=== PATIENT | male | born 1935 | race Caucasian/White ===

== ENCOUNTER 2017-12-13 20:24 | Inpatient (IN) | payer MEDICARE, MEDICAID ==
[2017-12-13 21:06] LABS: #Eosinphils 0.3 thou/uL (0.0-0.7); #Lymphocytes 1.7 thou/uL (1.20-3.40); #Monocytes 0.7 thou/uL (0.11-0.59); #Neutrophils 5.8 thou/uL (1.40-6.50); %Basophils 0.3 % (0.0-1.0); %Lymphocytes 20.6 % (21.0-51.0); %Monocytes 7.7 % (0.0-10.0); %Neutrophils 68.4 % (42.0-75.0); Hemoglobin 11.6 g/dL (14.0-18.0); Mean Corpuscular HGB CONC 35.2 g/dL (32.0-36.0); Mean Corpuscular Volume 91.2 fL (78.0-98.0); Mean Platelet Volume 6.5 fL (7.4-10.4); Platelet Count 243 thou/uL (130-400); RBC Distribution Width 11.6 % (11.5-14.5); Red Blood Cell (RBC) Count 3.62 mill/uL (4.70-6.10); White Blood Cell (WBC) Count 8.5 thou/uL (4.8-10.8)
--- NOTE | 2017-12-13 21:14 | RAD ---
SINGLE VIEW PELVIS: HISTORY: Fall with pelvic pain. FINDINGS: A single view of the pelvis shows no evidence of acute fracture or dislocation. No degenerative sahu ges are seen in either hip. Degenerative changes are seen in the lumbar spine. IMPRESSION: No evidence of acute osseous abnormality. POS: [facility]
[2017-12-13 21:36] LABS: ALT (SGPT) 29 U/L (8-55); AST (SGOT) 23 U/L (5-34); Albumin 3.8 g/dL (3.4-4.8); Alkaline Phosphatase 90 U/L (40-150); Anion Gap 14 mmol/L (10-20); BUN (Urea Nitrogen) 35 mg/dL (8.4-25.7); Bilirubin, Total 0.5 mg/dL (0.2-1.2); Calc. Creatinine Clearance 0 mL/min (70-130); Calcium 9.1 mg/dL (7.8-10.44); Carbon Dioxide 23 mmol/L (23-31); Chloride 106 mmol/L (98-107); Estimated GFR-MDRD 53; Glucose 162 mg/dL (83-110); Protein, Total 5.8 g/dL (5.8-8.1); Sodium 138 mmol/L (136-145)
[2017-12-13 21:41] LABS: Troponin I Less than 0.010 ng/mL (< 0.028)
--- NOTE | 2017-12-13 22:09 | CT ---
NONCONTRAST CT HEAD: 12/13/2017 HISTORY: Injury. Patient found on ground after a fall one hour ago. The patient was acting lethargic. The p atient does not remember the fall. The patient is currently on blood thinners. COMPARISON: None available. FINDINGS: There is decreased attenuation in the periventricular white matter, which is nonspecific but likely r eflective of moderate chronic small vessel ischemic changes. A tiny focus of decreased attenuation i s seen in the right lentiform nucleus, which is nonspecific, but is likely attributable to a remote l acunar infarction. A small, linear, low density area is seen within the right cerebellar hemisphere, related to a remote infarction. There is no evidence of an acute cortical infarction, hemorrhage, m ass effect, or midline shift. There is diffuse cerebral volume loss. The ventricular system is normal in size, shape, and position for the degree of sulcal atrophy. There is no evidence of a calvarial fracture. A tiny mucus retention cyst is present in the right maxillary antra, with minimal mucosal thickening in the left maxillary antrum. The mastoid air cells are clear. Vascular calcifications are seen in the carotid siphons and in the distal vertebral arteries. IMPRESSION: No acute intracranial abnormality is demonstrated. POS: [facility]
[2017-12-14 01:26] LABS: Bilirubin Negative (Negative); Blood, Urine Small (Negative); Clarity CLOUDY (Clear); Glucose, Urine (Dipstick) Negative (Negative); Leukocyte Large (Negative); Nitrite Negative (Negative); Protein, Urine (Dipstick) Negative (Neg-Trace); Specific Gravity, Urine 1.013 (1.002-1.036); Urobilinogen 0.2 mg/dL (0.2-1.0); pH, Urine 6.5 (5.0-9.0)
[2017-12-14 01:29] LABS: Bacteria/HPF None Seen HPF (None Seen); Hyaline Casts/LPF 0-3 HYALINE CAST LPF (0-3 Hyaline); Pathc Cast-AUWi Flag 0.14 (0-2.49); Squamous Epithelial None Seen HPF (0-3)
[2017-12-14] MEDS ORDERED: MEROPENEM 1 GM/50 ML 1 GM in Premix Bag 1 BAG IVPB SCH (02:45)
[2017-12-14 03:31] VITALS: BMI 23.1
[2017-12-14] MEDS ORDERED: Ondansetron ODT 4 MG TAB SL PRN (04:48)
[2017-12-14] MEDS ORDERED: Ondansetron HCl/PF 4 MG/2 ML Vial IVP PRN ×2 (04:48→08:31)
[2017-12-14] MEDS ORDERED: Acetaminophen 325 MG TAB PO PRN (04:48)
[2017-12-14] MEDS ORDERED: Bisacodyl 5 MG TAB PO PRN (08:31)
[2017-12-14] MEDS ORDERED: Acetaminophen 500 MG TAB PO PRN (08:31)
[2017-12-14] MEDS ORDERED: hydrALAZINE 20 MG/ML VIAL SLOW IVP PRN (08:31)
[2017-12-14] MEDS ORDERED: cloNIDine 0.1 MG TAB PO PRN (08:31)
[2017-12-14] MEDS ORDERED: Ondansetron ODT 4 MG TAB PO PRN (08:31)
[2017-12-14] MEDS ORDERED: Bisacodyl 10 MG SUPP PR SCH (09:00)
[2017-12-14] MEDS ORDERED: Non-Formulary Item 1 EACH (Omega-3 Fatty Acids/Fish Oil [Fish Oil 1,000 Mg Capsule] 1 CAP PO SCH (09:00)
[2017-12-14] MEDS ORDERED: Non-Formulary Item 1 EACH (Multivitamin [Daily Multiple Vitamin] 1 EACH) PO SCH (09:00)
[2017-12-14] MEDS ORDERED: Non-Formulary Item 1 EACH (Lactulose 10 Gm/15ml Oral Sol 20 GM) PO SCH (09:00)
[2017-12-14] MEDS ORDERED: LIDOCAINE HCL 76.5 GM TP SCH (09:00)
[2017-12-14] MEDS ORDERED: [UNRECOGNIZED DRUG - REMARK] EA NARE SCH (09:00)
[2017-12-14] MEDS ORDERED: Non-Formulary Item 1 EACH (Cholecalciferol (Vitamin D3) [D3-2000] 2,000 UNIT) PO SCH (09:00)
--- NOTE | 2017-12-14 09:59 | RAD ---
RIGHT HIP TWO VIEWS: History: Hip pain after a fall. Comparison: None. FINDINGS: Exam is limited due to leftward patient rotation. The right femoral neck is intact as well as the jeremias tabulum. Anterior and posterior acetabular turk are intact as well as the obturator foramen and obtu rator rings. Sacral struts are intact. SI joints intact. IMPRESSION: No displaced right sided hip fracture. POS: [facility]
[2017-12-14] MEDS: Sodium Chloride 0.9% 1,000 ML IV SCH (10:16)
[2017-12-14] MEDS: Bisacodyl 10 MG SUPP PR SCH (10:18)
[2017-12-14] MEDS: Atorvastatin Calcium 40 MG TAB PO SCH (10:18)
[2017-12-14] MEDS: cefTRIAXone\\ROCEPHIN 2 GM in Sodium Chloride 0.9% 100 ML IVPB SCH (10:18)
[2017-12-14] MEDS: Famotidine 20 MG TAB PO SCH ×2 (10:19→20:49)
[2017-12-14] MEDS: Clopidogrel Bisulfate 75 MG TAB PO SCH (10:19)
[2017-12-14] MEDS: Fish Oil 1,000 MG CAP PO SCH (10:20)
[2017-12-14] MEDS: Lisinopril 10 MG TAB PO SCH (10:21)
[2017-12-14] MEDS: Multivit, Therapeutic 1 TAB PO SCH (10:21)
[2017-12-14] MEDS: Tamsulosin HCl 0.4 MG CAP PO SCH (10:22)
--- NOTE | 2017-12-14 10:26 | HP ---
PRIMARY CARE PHYSICIAN: Dr. Brayden Vickers CHIEF COMPLAINT: Right hip pain. HISTORY OF PRESENT ILLNESS: This is an 81-year-old male who presents to [facility] Emergency Department transferring from [facility] where the patient has been a current resident over the last 3 months. The patient states pain in his right hip which is bothersom e after apparently falling or being [facility] at the [facility] according to the patient in the last several days. The patient states movement of the right hip is excruciatingly painful, bu t denied any swelling, fever, numbness or swelling to his lower ankles or feet. History is somewhat difficult to obtain as the patient has mild confusion and dementia. Per emergency room records the p atient was also evaluated for questionable syncopal episode; however, the history is sketchy at best when reviewing with the patient. The patient apparently was found on the floor at the [facility] from an unwitnessed fall from the bed. The patient states he is not normally ambula tory and needs assistance to transfer or sit in a chair or wheelchair. The patient initially was com plaining of bilateral hip pain in the emergency room, undergoing pelvic radiograph showing no evidenc e of acute fracture. The patient again states he has limited mobility and needs maximal assistance w ith transfers, sitting upright and eating. Due to patient's deconditioning and clinical decline he w as placed in the [facility] in the last 3 months. In the emergency room, the pat ient also underwent general evaluation including metabolic screening with urinalysis concerning for i nfectious process. The patient also underwent CT imaging of the brain showing no acute process. The patient did receive IV meropenem and 1 liter of normal saline. PAST MEDICAL HISTORY: 1. Coronary artery disease. 2. Nonambulatory status. 3. Question of falls. 4. History of cerebrovascular accident. 5. Benign prosthetic hyperplasia. 6. Hypertension. 7. Question of paraplegia. 8. 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 9. Dyslipidemia. 10. Right inguinal hernia. PAST SURGICAL HISTORY: 1. Status post coronary artery bypass grafting. 2. Status post inguinal hernia repair. 3. Status post bilateral cataract removal. 4. Status post left carotid endarterectomy. 5. Status post right rotator cuff repair. CURRENT MEDICATIONS: 1. Tylenol 500 mg p.o. b.i.d. 2. Enteric coated aspirin 81 mg p.o. daily. 3. Lipitor 40 mg p.o. daily. 4. Dulcolax 10 mg p.o. daily. 5. Dulcolax suppository 10 mg per rectum daily p.r.n. 6. Vitamin D3 2000 units p.o. daily. 7. Plavix 75 mg p.o. daily. 8. Flonase 2 sprays in each naris daily. 9. Lactulose 20 grams p.o. t.i.d. p.r.n. constipation. 10. Aspercreme topically t.i.d. p.r.n. 11. Lisinopril 10 mg 1 tab p.o. daily. 12. Melatonin 5 mg p.o. at bedtime. 13. Metoprolol succinate 25 mg p.o. b.i.d. 14. Multivitamin 1 tab p.o. daily. 15. [place] 3 fatty acids 1 capsule p.o. daily. 16. Flomax 0.4 mg p.o. daily. ALLERGIES: PENICILLIN. FAMILY HISTORY: No inheritable diseases per patient report. SOCIAL HISTORY: The patient resides at [facility]. No current alcohol, tobacco or illicit drug use. Nonambulatory status. Mobilizes with a wheelchair. REVIEW OF SYSTEMS: The following complete review of systems was negative, unless otherwise mentioned in the HPI or below: Constitutional: Weight loss or gain, ability to conduct usual activities. Skin: Rash, itching. Eyes: Double vision, pain. ENT/Mouth: Nose bleeding, neck stiffness, pain, tenderness. Cardiovascular: Palpitations, dyspnea on exertion, orthopnea. Respiratory: Shortness of breath, wheezing, cough, hemoptysis, fever or night sweats. Gastrointestinal: Poor appetite, abdominal pain, heartburn, nausea, vomiting, constipation, or diarrhea. Genitourinary: Urgency, frequency, dysuria, nocturia. Musculoskeletal: Pain, swelling. Neurologic/Psychiatric: Anxiety, depression. Allergy/Immunologic: Skin rash, bleeding tendency. PHYSICAL EXAMINATION: VITAL SIGNS CURRENTLY: Blood pressure 155/67, pulse 62, respiratory rate 18, temperature 99.1 degree s Fahrenheit, O2 saturation 94% on room air. GENERAL APPEARANCE: This is an 81-year-old male, alert and oriented x3, pleasant, responsi ve, in no acute distress. HEENT: Pupils are equal, round, and reactive to light and accommodation. Extraocular muscles are in tact. No scleral icterus, no conjunctival injection. Nares patent. OP is clear. Oral mucosa is dr y appearing. NECK: Supple, no cervical adenopathy, no thyromegaly, no carotid bruits, no JVD appreciated. Cervic al spine with full active and passive range of motion. No meningeal signs appreciated. CHEST: Lungs are clear to auscultation bilaterally. CARDIOVASCULAR: S1, S2, without noted murmur, rub or gallop. ABDOMEN: Rounded, soft, nontender, nondistended. Bowel sounds are positive in all 4 quadrants. The re is no hepatosplenomegaly, no abdominal bruits, no rebound or guarding appreciated. EXTREMITIES: Warm and dry with fair turgor. No clubbing, cyanosis or asymmetric edema appreciated. Pulses are palpable distally at the dorsalis pedis, posterior tibial, and popliteal arteries bilater ally. Capillary refill less than 2 seconds. Positive tenderness to palpation with abduction as well as flexion, extension of the right hip. No palpable mass. No greater trochanteric tenderness to pa lpation or discoloration. No femur deformity palpated. NEUROLOGIC: Cranial nerves II-XII are grossly intact. Not observed ambulatory during this PERTINENT LABORATORY AND X-RAY FINDINGS: BUN 35, creatinine 1.30, estimated GFR 53, glucose 162, mark cium 9.1. LFTs within normal limits. Troponin I negative x1. Albumin 3.8. CBC showed a white bloo d cell count 8.5, hemoglobin 12, hematocrit 33, platelet count 243 with 68% neutrophils. Urinalysis showed small blood, large leukocyte esterase, 7-10 RBCs per high powered field and greater than 50 to too numerous to count WBCs per high powered field. CT of the brain without contrast dated 12/13/2017 showed no acute intracranial process. Pelvic x-ray dated 12/13/2017 showed no acute process. EKG dated 12/13/2017 by my interpretation shows sinus mec hanism with heart rates in the 60s. Attenuated R waves noted in the precordial leads. Left axis dev iation. No acute ST-T wave changes appreciated. ASSESSMENT AND PLAN: 1. Urinary tract infection. We will continue Rocephin 2 grams IV q.24 hours. Urine culture pending . We will continue intravenous normal saline 75 mL per hour and encourage increased free water intak e orally. 2. Right hip pain, etiology unclear. We will obtain dedicated views of the right hip and rule out f racture or dislocation. Initial review of pelvic radiograph shows no acute abnormality. Consider CT imaging of the hip joint, if pain persists. Suspect underlying osteoarthritis as potential etiology . Pain control as needed. 3. Status post fall. Apparent unwitnessed fall. We will obtain PT evaluation for functional assess ment. General fall risk precautions. 4. Chronic kidney disease stage 3. Continue intravenous normal saline at 75 mL per hour. Avoid nep hrotoxic agents and contrast media. Repeat creatinine in the a.m. 5. Normocytic anemia. Appears chronic in nature. No current evidence to suggest acute blood loss. Repeat CBC in the a.m. and monitor hemoglobin trend. 6. Hypertension. Resume home antihypertensive regimen to include lisinopril and metoprolol. 7. Prophylaxis. Sequential compression devices while in bed. General fall risk precautions. Pepci d 20 mg p.o. b.i.d. 8. Code status is full. Surrogate medical decision maker is the patient's son.
[2017-12-14] MEDS: Fluticasone Propionate Nasal Spray 16 gm Bottle NASAL SCH (12:03)
[2017-12-14] MEDS: Methyl Salicylate/Menthol 85 GM TUBE TOP SCH ×2 (15:40→20:49)
[2017-12-14] MEDS: Melatonin 3 MG TAB PO SCH (20:55)
[2017-12-14] MEDS ORDERED: Non-Formulary Item 1 EACH (Melatonin [Melatonin] 5 MG) PO SCH (21:00)
[2017-12-15] MEDS ORDERED: diphenhydrAMINE 50 MG/ML VIAL IVP SCH (03:30)
[2017-12-15 08:45] LABS: Anion Gap 11 mmol/L (10-20); BUN (Urea Nitrogen) 20 mg/dL (8.4-25.7); Calc. Creatinine Clearance 59 mL/min (70-130); Calcium 9.4 mg/dL (7.8-10.44); Carbon Dioxide 24 mmol/L (23-31); Chloride 108 mmol/L (98-107); Estimated GFR-MDRD 70; Glucose 115 mg/dL (83-110); Potassium 4.2 mmol/L (3.5-5.1); Sodium 139 mmol/L (136-145)
[2017-12-15] MEDS: Bisacodyl 10 MG SUPP PR SCH (09:28)
[2017-12-15 09:29] LABS: Hemoglobin 12.4 g/dL (14.0-18.0); Mean Corpuscular HGB CONC 34.2 g/dL (32.0-36.0); Mean Corpuscular Hemoglobin 31.5 pg (27.0-31.0); Mean Corpuscular Volume 92.2 fL (78.0-98.0); Platelet Count 233 thou/uL (130-400); RBC Distribution Width 11.4 % (11.5-14.5); Red Blood Cell (RBC) Count 3.92 mill/uL (4.70-6.10); White Blood Cell (WBC) Count 9.2 thou/uL (4.8-10.8)
[2017-12-15] MEDS: cefTRIAXone\\ROCEPHIN 2 GM in Sodium Chloride 0.9% 100 ML IVPB SCH (09:29)
[2017-12-15] MEDS: Atorvastatin Calcium 40 MG TAB PO SCH (09:29)
[2017-12-15] MEDS: Clopidogrel Bisulfate 75 MG TAB PO SCH (09:30)
[2017-12-15] MEDS: Fish Oil 1,000 MG CAP PO SCH (09:30)
[2017-12-15] MEDS: Famotidine 20 MG TAB PO SCH ×2 (09:30→21:32)
[2017-12-15] MEDS: Fluticasone Propionate Nasal Spray 16 gm Bottle NASAL SCH (09:31)
[2017-12-15] MEDS: Lisinopril 10 MG TAB PO SCH (09:32)
[2017-12-15] MEDS: Multivit, Therapeutic 1 TAB PO SCH (09:33)
[2017-12-15] MEDS: Methyl Salicylate/Menthol 85 GM TUBE TOP SCH ×3 (09:33→21:31)
[2017-12-15] MEDS: Tamsulosin HCl 0.4 MG CAP PO SCH (09:33)
[2017-12-15] MEDS: Sodium Chloride 0.9% 1,000 ML IV SCH ×2 (09:34)
[2017-12-15 09:45] LABS: Band 1 % (5-11); Eosinophils 1 % (0-10); Lymphocytes 18 % (21-51); MDiff Complete? YES; Monocytes 5 % (0-10); Neutrophil 75 % (42-75); RBC Morphology Normal
--- NOTE | 2017-12-15 10:31 | PQF ---
CLINICAL DOCUMENTATION IMPROVEMENT CLARIFICATION FORM: ICD-10 Updated PLEASE DO AN ADDENDUM TO THE PROGRESS NOTE WITH ANY DOCUMENTATION UPDATES OR ADDITIONS AND CARRY THROUGH TO DC SUMMARY. THANK YOU. DATE: 12/15/17 ATTN: DR. ROTH Please exercise your independent, professional judgment in responding to the clarification form. Clinical indicators are provided on the bottom of this form for your review Please check appropriate box(s): [ ] Encephalopathy: Type: [ ] Acute [ ] Subacute [ ] Chronic Etiology: [ ] Hypertensive [ ] Metabolic [ ] Toxic [ ] Hepatic with Coma [ ] Hepatic w/o Coma [ ] Hypoxic [ ] Septic [ ] Drug induced: [ ] Unspecified [ ] in the setting of underlying dementia [ ] Other (please specify) [ ] Transient Alteration of Awareness [ ] Other diagnosis [ x ] Unable to determine In addition, please specify: Present on Admission (POA): [ ] Yes [ ] No [ x] Unable to determine For continuity of documentation, please document condition throughout progress notes and discharge summary. Thank You. CLINICAL INDICATORS - SIGNS / SYMPTOMS / LABS NURSES NOTE 12/15: "AT THIS TIME, PATIENT IS SOMEWHAT AGGRESSIVE AND IS REFUSING TO HAVE SOILED BRIEF CHANGED AND IS ALSO REFUSING TO TURN." "PATIENT HAS CONTINUED TO TRY TO GET OUT OF BED. PT BECAME INCREASINGLY AGGRAVATED WITH NURSING STAFF. UNABLE TO REORIENT PATIENT AT THIS TIME. PT STARTING TO THROW PUNCHES, KICKING, SCRATCHING, AND SPITTING." "PT ALSO REFUSED VITALS AT THIS TIME. PT REFUSED LABS TO BE DRAWN AT THIS TIME. " RISKS: ADVANCED AGE DEMENTIA ADMISSION FOR UTI TREATMENT: WRIST RESTRAINTS IV ANTIBIOTICS [employer] Win[employer] Viewer (This form is maintained as a part of the permanent medical record) 2014 [employer]. All Rights Reserved [email or web address] Office: [phone] [facility] STATE HOSPITALAdeola
--- NOTE | 2017-12-15 14:08 | PDOC.PN ---
- Subjective Encounter Start Date: 12/15/17 Encounter Start Time: 14:05 Subjective: f/u for UTI, dehydration and fall. Feels better overall. Receiving Rocephin -: and IVF's. No new complaints. - Objective Resuscitation Status: Resuscitation Status FULL:Full Resuscitation MAR Reviewed: Yes Vital Signs & Weight: Vital Signs (12 hours) Temp Pulse Resp BP BP Pulse Ox 12/15/17 13:09 97.8 F 72 14 156/70 H 95 12/15/17 08:00 97.8 F 64 14 151/68 H 96 Weight Weight 161 lb 8 oz I&O: 12/14/17 12/15/17 12/16/17 06:59 06:59 06:59 Intake Total 2236 Balance 2236 Result Diagrams: 12/15/17 08:01 12/15/17 08:01 Additional Labs: Laboratory Tests 12/13/17 12/13/17 20:52 20:52 Hgb 11.6 L Potassium 5.0 Creatinine 1.30 Radiology Reviewed by me: Yes (R hip x-ray - no acute process) EKG Reviewed by me: Yes (Tele - SR) Phys Exam - Physical Examination Constitutional: NAD HEENT: PERRLA, sclera anicteric, oral pharynx no lesions Neck: no nodes, no JVD, supple, full ROM Respiratory: no wheezing, no rales, no rhonchi, clear to auscultation bilateral S1, S2 Cardiovascular: RRR, no significant murmur, no rub, gallop Gastrointestinal: soft, non-tender, no distention, positive bowel sounds Musculoskeletal: no edema, pulses present Neurological: normal sensation, moves all 4 limbs Psychiatric: normal affect, A&O x 3 Skin: no rash, normal turgor, cap refill <2 seconds Dx/Plan (1) UTI (urinary tract infection) Status: Acute Qualifiers: Urinary tract infection type: acute cystitis Comment: Continue Rocephin 2gm IV daily, continue IVF's, await Ucx results (2) Acute right hip pain Code(s): M25.551 - PAIN IN RIGHT HIP Status: Acute Comment: No evidence of fracture, supportive measures, PT evaluation (3) Status post fall Code(s): Z91.81 - HISTORY OF FALLING Status: Acute Comment: PT evaluation, fall risk precautions (4) CIPRIANO (acute kidney injury) Code(s): N17.9 - ACUTE KIDNEY FAILURE, UNSPECIFIED Status: Acute Comment: Improved with IVF's, avoid nephrotoxic meds and limit contrast exposure (5) CKD (chronic kidney disease), stage III Code(s): N18.3 - CHRONIC KIDNEY DISEASE, STAGE 3 (MODERATE) Status: Chronic Comment: near baseline values, see above (6) HTN (hypertension) Code(s): I10 - ESSENTIAL (PRIMARY) HYPERTENSION Status: Chronic Qualifiers: Hypertension type: essential hypertension Qualified Code(s): I10 - Essential (primary) hypertension Comment: Stable currently, continue Metoprolol and Lisinopril - Plan continue antibiotics, PT/OT, nephrology social worker, DVT proph w/SCDs Stable overall -: Continue Rocephin 2gm IV daily -: Continue IVF's another 24h then saline lock -: PT for mobilization -: AM lab: BMP * Likely d/c in 24h
[2017-12-15] MEDS: Melatonin 3 MG TAB PO SCH (21:32)
[2017-12-16] MEDS: Sodium Chloride 0.9% 1,000 ML IV SCH (00:07)
[2017-12-16] MEDS: Multivit, Therapeutic 1 TAB PO SCH (10:06)
[2017-12-16] MEDS: Fish Oil 1,000 MG CAP PO SCH (10:06)
[2017-12-16] MEDS: Tamsulosin HCl 0.4 MG CAP PO SCH (10:06)
[2017-12-16] MEDS: Lisinopril 10 MG TAB PO SCH (10:07)
[2017-12-16] MEDS: Clopidogrel Bisulfate 75 MG TAB PO SCH (10:07)
[2017-12-16] MEDS: Atorvastatin Calcium 40 MG TAB PO SCH (10:08)
[2017-12-16] MEDS: Famotidine 20 MG TAB PO SCH (10:08)
[2017-12-16] MEDS: cefTRIAXone\\ROCEPHIN 2 GM in Sodium Chloride 0.9% 100 ML IVPB SCH (10:08)
[2017-12-16] MEDS: Bisacodyl 10 MG SUPP PR SCH (10:09)
[2017-12-16] MEDS: Fluticasone Propionate Nasal Spray 16 gm Bottle NASAL SCH (10:09)
[2017-12-16] MEDS: Methyl Salicylate/Menthol 85 GM TUBE TOP SCH (10:10)
[2017-12-16 10:32] LABS: Anion Gap 9 mmol/L (10-20); BUN (Urea Nitrogen) 20 mg/dL (8.4-25.7); Calc. Creatinine Clearance 54 mL/min (70-130); Calcium 9.4 mg/dL (7.8-10.44); Carbon Dioxide 25 mmol/L (23-31); Chloride 106 mmol/L (98-107); Estimated GFR-MDRD 68; Glucose 205 mg/dL (83-110); Potassium 4.3 mmol/L (3.5-5.1); Sodium 136 mmol/L (136-145)
[2017-12-16 11:05] VITALS: BP 126/60; TEMP 98.5
--- NOTE | 2017-12-16 12:27 | DIS ---
DATE OF ADMISSION: 12/14/2017 DATE OF DISCHARGE: 12/16/2017 DISCHARGE DIAGNOSES: 1. Urinary tract infection, organism not identified. 2. Acute right hip pain, musculoskeletal. 3. Status post fall. 4. Acute kidney injury on chronic kidney disease, stage 3. 5. Hypertension, stable. 6. Dementia, mild. 7. Chronic normocytic anemia. CONSULTATIONS: None. PERTINENT LABORATORIES AND X-RAY FINDINGS: Potassium ranged between 4.2-5.0, creatinine ranged betwe en 1.02-1.30, estimated GFR ranged between 53-70. LFTs within normal limits. CBC showed a hemoglobi n ranged between 11.6-12.4. CT of the brain without contrast dated 12/13/2017 showed no acute intrac ranial process. Pelvic x-rays dated 12/13/2017 showed no acute process. Two views of the right hip dated 12/14/2017 showed no acute process. HOSPITAL COURSE: Patient was initially admitted to the telemetry unit after presenting with right hi p pain, status post fall. The patient underwent extensive evaluation including multiple imaging stud ies showing negative findings. The patient was treated for suspected urinary tract infection after s creening urinalysis was positive. Urine culture was not performed and an organism was not identified . The patient continued on IV Rocephin throughout the hospital course, and overall, clinically impro talia with supportive measures including IV fluids. The patient had complained of right hip pain at th e time of presentation with radiographs showing no evidence of acute fracture. Patient received supp ortive management and resumed his home medications without difficulty. Telemetry monitoring showed a sinus mechanism without evidence of acute arrhythmia or dysrhythmia. The patient at baseline functi onal status prior to discharge. I have examined the patient at the time of discharge and discussed f [facility] instructions as well as plan of care after discharge. The patient verbalized understanding a nd agreement and ready for discharge on 12/16/2017. DISCHARGE MEDICATIONS: 1. Aspirin enteric-coated 81 mg p.o. daily. 2. Lipitor 40 mg p.o. at bedtime. 3. Omnicef 300 mg p.o. b.i.d. x4 days. 4. Vitamin D3 2000 units p.o. daily. 5. Plavix 75 mg p.o. daily. 6. Flonase nasal spray 2 sprays in each naris daily. 7. Lidocaine 76.5 grams topically t.i.d. p.r.n. 8. Lisinopril 10 mg p.o. daily. 9. Melatonin 5 mg p.o. at bedtime. 10. Metoprolol succinate 25 mg p.o. b.i.d. 11. Multivitamin 1 tab p.o. daily. 12. [place] 3 fatty acids 1 capsule p.o. daily. 13. Flomax 0.4 mg p.o. daily. FOLLOWUP: The patient will follow up with Dr. Brayden Vickers at [facility]. CONDITION ON DISCHARGE: Fair. ACTIVITY: Ad iris. Fall risk precautions. DIET: Mechanical soft, regular. CODE STATUS: FULL. DISPOSITION: Discharged to [place], [place], 12/16/2017. Total time preparing and coordinating discharge, 32 minutes.
== END 2017-12-16 15:05 | DRG 556 ==
LOC: ERS 20:24 → 2NO 12-14 01:27
PROVIDERS: ADMIT Internal Medicine; ATTEND Internal Medicine
DX: M25.551 Pain in right hip (principal); N17.9 Acute kidney failure, unspecified; N30.00 Acute cystitis without hematuria; W06.XXXA Fall from bed, initial encounter; F03.90 Unspecified dementia, unspecified severity, without behavioral disturbance, psychotic disturbance, mood disturbance, and anxiety; D64.9 Anemia, unspecified; I12.9 Hypertensive chronic kidney disease with stage 1 through stage 4 chronic kidney disease, or unspecified chronic kidney disease; N18.3 Chronic kidney disease, stage 3 (moderate); Y92.129 Unspecified place in nursing home as the place of occurrence of the external cause; I25.10 Atherosclerotic heart disease of native coronary artery without angina pectoris; Z95.1 Presence of aortocoronary bypass graft; E78.5 Hyperlipidemia, unspecified; N40.0 Benign prostatic hyperplasia without lower urinary tract symptoms; Z86.73 Personal history of transient ischemic attack (TIA), and cerebral infarction without residual deficits; M16.11 Unilateral primary osteoarthritis, right hip
CPT/HCPCS: 36415; 51703; 70450; 72170; 80048; 80053; 81003; 81015; 82553; 84484; 85007; 85025; 85027; 93005; 96361; 96374; A4216; G8978-GP-CM; G8979-GP-CL; J0696; J1200; J2185; J7050